=== PATIENT | male | born 1985 | race Caucasian/White ===

== ENCOUNTER 2018-03-23 10:39 | Emergency (ER) | payer SELFPAY ==
[~2018-03-23] VITALS: Ht 175.3 cm; Wt 63.5 kg
--- NOTE | 2018-03-23 10:45 | NUR ---
Pt is calm and cooperative, understnd concepts and able to follow directions.
--- NOTE | 2018-03-23 10:58 | NUR ---
Pt out of ER for CT.
--- NOTE | 2018-03-23 11:22 | NUR ---
Pt back from [facility], metrology technician at the bedside for blood draw.
[2018-03-23 11:35] LABS: CARBON DIOXIDE 26 mmol/L (21-32); CHLORIDE 105 mmol/L (98-107); CREATININE 1.1 mg/dL (0.6-1.3); GLUCOSE 90 mg/dL (74-106); POTASSIUM 4.4 mmol/L (3.5-5.1); UREA NITROGEN, BLOOD 22 mg/dL (7-18)
[2018-03-23 11:42] LABS: ALANINE AMINOTRANSFERASE 31 U/L (16-63); ALKALINE PHOSPHATASE 72 U/L (50-136); ASPARTATE AMINOTRANSFERASE 40 U/L (15-37); BILIRUBIN,DIRECT 0.3 mg/dL (0.0-0.2); BILIRUBIN,TOTAL 2.4 mg/dL (0.2-1.0); TOTAL PROTEIN, SERUM 7.6 g/dL (6.4-8.2)
[2018-03-23 11:43] LABS: BASOPHILS % (AUTO) 0.3 % (0.0-2.0); HEMATOCRIT 45.7 % (36.7-47.1); HEMOGLOBIN 15.4 g/dL (12.5-16.3); LYMPHOCYTES # (AUTO) 0.7 K/uL (20.0-40.0); LYMPHOCYTES % (AUTO) 4.6 % (20.5-51.5); MEAN CORPUSCULAR HEMOGLOBIN 29.8 uug (23.8-33.4); MEAN CORPUSCULAR HGB CONC 34 g/dL (32.5-36.3); MEAN CORPUSCULAR VOLUME 88.4 fL (73.0-96.2); MONOCYTES % (AUTO) 6.9 % (0.0-11.0); NEUTROPHILS % (AUTO) 88.2 % (38.5-71.5); PLATELET COUNT (AUTO) 272 K/uL (152-348); RED BLOOD CELL COUNT(AUTO) 5.17 MIL/uL (4.06-5.63); WHITE BLOOD COUNT (AUTO) 14.7 K/uL (3.6-10.2)
[2018-03-23 11:44] LABS: ACETAMINOPHEN < 2.0 ug/mL (10-30)
[2018-03-23 11:45] LABS: ETHANOL < 3 MG/DL (0-0)
--- NOTE | 2018-03-23 11:52 | NUR ---
Patient is resting comfortably in bed with eyes closed NAD noted.
[2018-03-23] MEDS ORDERED: IV NORMAL SALINE 1000 ML BAG IV ONE (12:15)
--- NOTE | 2018-03-23 12:42 | NUR ---
Fluids and lunch provided, pt has poor appetitie.
[2018-03-23] MEDS ORDERED: OLANZAPINE ZYDIS 5 MG TAB.RAPDIS PO SCH (12:45)
--- NOTE | 2018-03-23 12:54 | NUR ---
Per MD request,called [employer] non emergency and spoke to combiner operator#[phone]. awaiting call back.
[2018-03-23] MEDS ORDERED: OLANZAPINE 5 MG TABLET ONE (12:56)
--- NOTE | 2018-03-23 12:58 | NUR ---
Pt is medically cleared by Dr Masters, for Psych eval.
--- NOTE | 2018-03-23 13:00 | NUR ---
Per Md request called Guido Vickers from [facility] to eval Pt. Guido Vickers spoke to Dr Masters.
--- NOTE | 2018-03-23 13:03 | NUR ---
Spoke to officer jinny at [facility], unable to receive Pt's info, from [facility].
--- NOTE | 2018-03-23 13:12 | NUR ---
Called the phone # from [employer] and spoke to Qiana, from [employer]. The officer in charge will be calling me.
[2018-03-23 13:15] LABS: *AMPHETAMINE, URINE POSITIVE (NEGATIVE); *BARBITURATE, URINE NEGATIVE (NEGATIVE); *CANNABINOID, URINE NEGATIVE (NEGATIVE); *COCCAINE, URINE NEGATIVE (NEGATIVE); *OPIATE, URINE NEGATIVE (NEGATIVE); *PHENCYCLIDINE SCREEN,URINE NEGATIVE (NEGATIVE)
--- NOTE | 2018-03-23 13:25 | NUR ---
Officer Manuel from [employer] called and provided Pt's name and .
--- NOTE | 2018-03-23 13:38 | NUR ---
Patient is resting comfortably in bed with eyes closed, NAD noted.
[2018-03-23] MEDS ORDERED: CIPROFLOXACIN-HC OTIC DROP 10 ML BOTTLE LEFT EAR SCH (14:15)
[2018-03-23] MEDS ORDERED: IBUPROFEN 600 MG TABLET PO ONE (14:15)
[2018-03-23] MEDS ORDERED: HYDROCODONE/APAP 10-325 MG TABLET PO ONE (14:15)
[2018-03-23 14:46] LABS: *BILIRUBIN,URIN NEGATIVE (NEGATIVE); *BLOOD, URINE NEGATIVE (NEGATIVE); *CLARITY,URINE CLOUDY (CLEAR); *COLOR,URINE YELLOW (YELLOW); *KETONES,URINE 4+ (NEGATIVE); *PROTEIN,URINE 1+ (NEGATIVE); *UROBILINOGEN,URINE 0.2 E.U./dl (NORMAL); LEUKOCYTE ESTERASE ,URINE NEGATIVE (NEGATIVE); NITRITE, URINE NEGATIVE (NEGATIVE); PH,URINE 5.5 (5.0-8.0); UGLUCOSE NEGATIVE (NEGATIVE)
[2018-03-23 15:06] LABS: BACTERIA,URINE NONE SEEN /HPF (NONE SEEN); RBC,URINE 0-3 /HPF (0-3); SQUAMOUS EPITHELIAL CELL,UR FEW /HPF (NONE SEEN); URINE AMORPHOUS URATE MANY /HPF; WBC,URINE 0-3 /HPF (0-3)
--- NOTE | 2018-03-23 16:22 | NUR ---
Pt is more awake and eating. Contacted Guido Vickers from [facility]. ETA 40 min.
--- NOTE | 2018-03-23 17:10 | NUR ---
Guido Vickers LCSW from [facility] at the bedside for Psych eval.
--- NOTE | 2018-03-23 17:25 | NUR ---
Dinner provided, pt ate 100% of tray.
--- NOTE | 2018-03-23 17:35 | NUR ---
IV removed. Catheter intact and site benign. Pressure and 4x4 gauze applied to site. No bleeding noted.
[2018-03-23 17:40] VITALS: BP 114/72
--- NOTE | 2018-03-23 17:40 | NUR ---
Patient given written and verbal discharge instructions. Patient verbalizes understanding of instructions. Patient is ambulatory with steady gait. Refuses offer of retirement placement. Patient given list of available shelters in surrounding area.
== END 2018-03-23 17:53 | disposition home or self-care (01) ==
LOC: EDBD 10:39 → ER 10:39
DX: S10.93XA Contusion of unspecified part of neck, initial encounter (principal); R41.82 Altered mental status, unspecified; D72.829 Elevated white blood cell count, unspecified; F15.10 Other stimulant abuse, uncomplicated; X58.XXXA Exposure to other specified factors, initial encounter; Y93.89 Activity, other specified; Y92.89 Other specified places as the place of occurrence of the external cause; Y99.8 Other external cause status
CPT/HCPCS: 70450; 70490; 71045; 80048; 80076; 80307; 81001; 85025; 96360; 99285; A4663; G0480 ×2; G0481; J7030